=== PATIENT | male | born 1950 | race Caucasian/White ===

== ENCOUNTER → 2017-01-08 | Outpatient (CLI) | payer OTHER, BC ==
[~2017-01-08] VITALS: Ht 182.9 cm; Wt 119.5 kg
[~2017-01-08] MED LIST: AMLODIPINE BESY10 MG PO; DALMANE30 MG PO; DIOVAN HCT 31 TABLET PO; DONEPEZIL HCL10 MG PO; EXFORGE HCT 101 EAC2 PO; FLOMAX0.4 MG PO; FLUOXETINE HCL40 MG PO; KLONOPIN1 MG PO; LEVAQUIN750 MG PO; LIPITOR40 MG PO; NAMENDA XR28 MG PO; NAMENDA10 MG PO; OMEPRAZOLE40 M1 PO; PROTONIX40 MG PO; SIMVASTATIN40 MG PO; SYMBICORT60 INHALAT IH; TIZANIDINE HCL4 MG PO; VENLAFAXINE HC150 M1 PO
== END | disposition home or self-care (01) ==
LOC: AMB 14:00
DX: D12.3 Benign neoplasm of transverse colon (principal); K57.30 Diverticulosis of large intestine without perforation or abscess without bleeding; Z53.09 Procedure and treatment not carried out because of other contraindication; Q43.8 Other specified congenital malformations of intestine; R19.7 Diarrhea, unspecified; R19.4 Change in bowel habit; R10.33 Periumbilical pain; R14.0 Abdominal distension (gaseous); E66.9 Obesity, unspecified; Z68.35 Body mass index [BMI] 35.0-35.9, adult; G47.30 Sleep apnea, unspecified; I25.10 Atherosclerotic heart disease of native coronary artery without angina pectoris; I25.2 Old myocardial infarction; E78.5 Hyperlipidemia, unspecified; Z88.5 Allergy status to narcotic agent; Z83.79 Family history of other diseases of the digestive system; Z82.49 Family history of ischemic heart disease and other diseases of the circulatory system
CPT/HCPCS: 88305; 88313